=== PATIENT | male | born 1975 | race Caucasian/White ===

== ENCOUNTER 2023-02-20 22:35 | Emergency (ER) | payer MEDICAID, OTHER ==
[~2023-02-20] VITALS: Ht 170.2 cm; Wt 72.6 kg
[2023-02-20 22:38] VITALS: BP 144/95
--- NOTE | 2023-02-20 22:38 | NUR ---
[id number] from home smoked meth 1hr ago, feels anxious
--- NOTE | 2023-02-20 22:57 | NUR ---
Patient left without being seen by ER Physician DR. Modi DO aware.
[2023-02-20] MEDS ORDERED: LORAZEPAM 1 MG TABLET PO ONE (23:00)
== END 2023-02-20 22:57 | disposition home or self-care (01) ==
LOC: ER 22:36
DX: F41.9 Anxiety disorder, unspecified (principal); F17.200 Nicotine dependence, unspecified, uncomplicated